=== PATIENT | male | born 1965 | race Caucasian/White ===

== ENCOUNTER 2022-08-02 13:08 | Emergency (ER) | payer BC ==
[2022-08-02] MEDS ORDERED: diphenhydrAMINE 50 MG/ML SDV IVPUSH ONE (13:16)
[2022-08-02] MEDS ORDERED: methylPREDNISolone Sodium Succinate 125 MG/2 ML SDV IVPUSH ONE (13:16)
[2022-08-02] MEDS ORDERED: Sodium Chloride 0.9% 1,000 ML IV ONE (13:16)
[2022-08-02] MEDS ORDERED: Aspirin 81 MG Tab.Chew PO ONE (13:16)
[2022-08-02] MEDS ORDERED: Famotidine 20 MG/2 ML SDV IVPUSH ONE (13:16)
[2022-08-02] MEDS ORDERED: Albuterol/Ipratropium 3.0-0.5 MG/3 ML Neb Soln NEB ONE (13:19)
[2022-08-02 13:49] LABS: BLOOD UREA NITROGEN,BUN 12 mg/dL (7.0-18.0); CARBON DIOXIDE,CO2 28.9 mmol/L (21.0-32.0); CHLORIDE,CL 104 mmol/L (98-107); GLUCOSE RANDOM 98 mg/dL (74-106); POTASSIUM,K 3.9 mmol/L (3.5-5.1); SODIUM,NA 142 mmol/L (136-148)
[2022-08-02 13:51] LABS: ESTIMATED GFR 70 mL/min (>60)
== END 2022-08-02 16:21 | disposition home or self-care (01) ==
LOC: MW.ED 13:08
DX: R07.89 Other chest pain (principal); L50.0 Allergic urticaria; I25.10 Atherosclerotic heart disease of native coronary artery without angina pectoris; Z95.1 Presence of aortocoronary bypass graft; Z79.82 Long term (current) use of aspirin
CPT/HCPCS: 36415; 71045; 80053; 84484; 85025; 86140; 93005; 96361; 96374; 96375; 99285; A9270; J1200; J2930; J3490; J7030; 93010; 99284; J7620-GY

== ENCOUNTER 2023-03-13 09:59 | Emergency (ER) | payer BC ==
[2023-03-13] MEDS ORDERED: Ketorolac 30 MG/ML SDV IVPUSH ONE (10:19)
[2023-03-13] MEDS ORDERED: Sodium Chloride 0.9% 1,000 ML IV ONE (10:19)
[2023-03-13 10:58] LABS: BASOPHILS PERCENT AUTO 0.5 % (0.0-1.5); EOSINOPHILS ABSOLUTE AUTO 0.3 K/uL (0.0-0.7); EOSINOPHILS PERCENT AUTO 4.3 % (0.0-7.0); HEMATOCRIT 46.8 % (38.0-50.0); HEMOGLOBIN 15.7 g/dL (13.0-17.0); LYMPHOCYTES ABSOLUTE AUTO 1.4 K/uL (0.6-2.4); LYMPHOCYTES PERCENT AUTO 21.2 % (16.0-40.0); MEAN CORPUSCULAR HEMOGLOBIN 29.2 pg (27.0-32.0); MEAN CORPUSCULAR HGB CONC 33.5 g/dL (31.0-37.0); MONOCYTES ABSOLUTE AUTO 0.6 K/uL (0.0-0.8); MONOCYTES PERCENT AUTO 9.3 % (0.0-15.0); NEUTROPHILS ABSOLUTE AUTO 4.2 K/uL (1.4-5.7); NEUTROPHILS PERCENT AUTO 64.7 % (48.0-80.0); NRBC ABSOLUTE 0 K/uL; PLATELET COUNT,PLT 253 K/uL (150-400); RED BLOOD CELL COUNT 5.38 M/uL (4.50-5.90); WHITE BLOOD CELL COUNT,WBC 6.55 K/uL (4.0-11.0)
[2023-03-13 11:22] LABS: ALBUMIN 3.5 g/dL (3.4-5.0); CALCIUM 8.8 mg/dL (8.5-10.1); CARBON DIOXIDE,CO2 27.9 mmol/L (21.0-32.0); CREATININE 1.2 mg/dL (0.8-1.3); EST CRCL DRUG DOSING (CG) 67.59 mL/min; POTASSIUM,K 4.3 mmol/L (3.5-5.1); PROTEIN TOTAL,TP 7.1 g/dL (6.4-8.2)
[2023-03-13] MEDS ORDERED: Iopamidol 755 MG/ML 500 ML Multipack Bottle IVPUSH STA (12:08)
[2023-03-13 12:15] LABS: APPEARANCE,URINE CLEAR; BILIRUBIN,URINE NEGATIVE (NEGATIVE); COLOR,URINE YELLOW; GLUCOSE,URINE NEGATIVE (NEGATIVE); KETONES,URINE NEGATIVE (NEGATIVE); LEUKOCYTE ESTERASE,URINE NEGATIVE (NEGATIVE); NITRITE,URINE NEGATIVE (NEGATIVE); OCCULT BLOOD,URINE NEGATIVE (NEGATIVE); PH,URINE 5.5 (5.0-8.0); PROTEIN,URINE NEGATIVE (NEGATIVE); UROBILINOGEN,URINE 0.2 EU/dL (<2.0)
== END 2023-03-13 15:17 | disposition home or self-care (01) ==
LOC: MW.ED 09:59
DX: C19 Malignant neoplasm of rectosigmoid junction (principal); I25.2 Old myocardial infarction
CPT/HCPCS: 36415; 74177; 80053; 81003; 85025; 96361; 96374; 99284; J1885; J7030; Q9967